=== PATIENT | male | born 1995 | race Caucasian/White ===

== ENCOUNTER 2016-04-10 11:14 | Emergency (ER) | payer SELFPAY ==
[~2016-04-10] VITALS: Ht 172.7 cm; Wt 92.0 kg
[~2016-04-10 11:14] MED LIST: BENZ100 PO; FLUT1SPR9; IBUP800T23 PO; METH750T2 PO; ZITH250T PO
[2016-04-10 11:23] VITALS: BP 120/75; PULSE 73; RESP 16; TEMP 97.8; O2SAT 97
[2016-04-10] MEDS ORDERED: IBUP800T23 PO (11:47)
[2016-04-10] MEDS ORDERED: AMOX875T PO (11:47)
[2016-04-10] MEDS ORDERED: IPRA0.06 EACH NARE (11:47)
--- NOTE | 2016-04-10 11:48 | PD ---
HPI Chief Complaint: Cold / Flu Symptoms Time Seen by Provider: 11:42 Travel History International Travel<30 days: No Contact w/Intl Traveler<30days: No Traveled to known affect area: No History of Present Illness HPI Patient is a 20-year-old male who presents emergency for evaluation of nasal congestion, cough. Patient states his symptoms have been ongoing for 2 days, he denies any fevers or chills. He does state that he vomited this morning, it was associated with a coughing spell. He denies any abdominal pain, shortness of breath, diarrhea. He states that his daughter was sick last week and her symptoms resolved on their own. He denies any significant past medical history but does endorse smoking. [facility] Past Medical History Anxiety: Yes Developmental Delay: No Diabetes: No Diminished Hearing: No Immune Disorder: No Immunizations Current: Yes Social History Alcohol Use: No Tobacco Use: Yes Substance Use: No Allergies-Medications (Allergen,Severity, Reaction): Coded Allergies: Sulfa (Verified Allergy, Severe, HIVES, 04/10/16) Reported Meds & Prescriptions Reported Meds & Active Scripts Active No Active Prescriptions or Reported Medications Review of Systems Except as stated in HPI: all other systems reviewed are Neg General / Constitutional: No: Fever, Chills HENT: Positive: Rhinitis, Congestion, No: Sore Throat, Neck Pain, Earache Cardiovascular: No: Chest Pain or Discomfort Respiratory: Positive: Cough, No: Shortness of Breath, Wheezing Gastrointestinal: Positive: Vomiting (once this morning), No: Nausea, Diarrhea , Abdominal Pain Musculoskeletal: No: Myalgias Physical Exam Narrative GENERAL: Well-nourished, well-developed patient. SKIN: Warm and dry. HEAD: Normocephalic. EYES: No scleral icterus. No injection or drainage. NECK: Supple, trachea midline. No JVD or lymphadenopathy. ENT: Mucosa pink and moist. No erythema or exudates. No uvular edema. No uvular , palatal, or tonsillar deviation. Airway patent. Nasal turbinates appear edematous without nasal blood, purulent drainage or septal hematoma. Posterior pharynx cobblestone appearance CARDIOVASCULAR: Regular rate and rhythm without murmurs, gallops, or rubs. RESPIRATORY: Breath sounds equal bilaterally. No accessory muscle use. GASTROINTESTINAL: Abdomen soft, non-tender, nondistended. MUSCULOSKELETAL: No cyanosis, or edema. BACK: Nontender without obvious deformity. No CVA tenderness. Data Data Last Documented VS Vital Signs Date Time Temp Pulse Resp B/P Pulse Ox O2 Delivery O2 Flow Rate FiO2 04/10/16 11:23 97.8 73 16 120/75 97 [facility] Medical Decision Making Medical Screen Exam Complete: Yes Emergency Medical Condition: Yes Interpretation(s) Vital Signs Date Time Temp Pulse Resp B/P Pulse Ox O2 Delivery O2 Flow Rate FiO2 04/10/16 11:23 97.8 73 16 120/75 97 Differential Diagnosis Viral URI versus bronchitis versus pneumonia versus pharyngitis versus other Narrative Course Patient is a 20-year-old male who presents emergency department evaluation 2 days of cough and nasal congestion. Patient's daughter was sick with the same symptoms last week and symptoms resolved on their own with symptomatic management. Patient denies any other complaints at this time, he denies any abdominal pain but states he vomited this morning with a coughing spell. His vital signs are stable, he is afebrile well oxygenated on room air. Patient appears well. He was encouraged to continue symptomatic management. Patient will be provided with a prescription for an antibiotic however he was encouraged to avoid taking it for 3-4 days to see if his symptoms resolve on their own. Patient verbalized understanding of these instructions. Patient stable for discharge. Diagnosis Primary Impression: Viral URI with cough Referrals: Primary Care Physician Patient Instructions: General Instructions, Upper Respiratory Infection (ED) Additional Instructions: Obtain [id number]-hikryru nasal congestion or similar agent and take as directed, [id number] Nasonex or Flonase. Continue with symptomatic management Avoid tobacco use Return to emergency department for any new or worsening symptoms Follow-up with your primary doctor Med/Other Pt SpecificInfo: Prescription(s) given Scripts Ibuprofen 800 Mg [id number] Mg PO Q6HR PRN (PAIN) #40 TAB Ref 0 Prov:Estrellita Parks 04/10/16 Ipratropium Nasal 0.06% Spray1 [place] EACH NARE QID #1 BOTTLE Ref 0 Prov:Estrellita Parks 04/10/16 Amoxicillin 875 Mg [id number] Mg PO BID 10 Days Ref 0 Prov:Estrellita Parks 04/10/16 Disposition: 01 DISCHARGE HOME Condition: Stable Estrellita Parks Apr 10, 2016 11:47
== END 2016-04-10 12:04 | disposition home or self-care (01) ==
LOC: PHEFT 11:14
DX: J06.9 Acute upper respiratory infection, unspecified (principal); B34.9 Viral infection, unspecified; R05 Cough; Z72.0 Tobacco use
CPT/HCPCS: 99283

== ENCOUNTER 2016-11-14 15:07 | Emergency (ER) | payer SELFPAY ==
[~2016-11-14 15:07] MED LIST changes: +AMOX875T PO; -BENZ100 PO; -FLUT1SPR9; +IPRA0.06 EACH NARE; -METH750T2 PO; -ZITH250T PO
[2016-11-14 15:09] VITALS: BP 153/78; PULSE 91; RESP 20; TEMP 97.7; O2SAT 98
== END 2016-11-14 17:59 | disposition left against medical advice (07) ==
LOC: NED 15:07
DX: H57.11 Ocular pain, right eye (principal); Z53.21 Procedure and treatment not carried out due to patient leaving prior to being seen by health care provider
CPT/HCPCS: 99281

== ENCOUNTER 2016-12-04 16:27 | Emergency (ER) | payer SELFPAY ==
[~2016-12-04] VITALS: Ht 170.2 cm; Wt 93.1 kg
[2016-12-04 16:45] VITALS: BP 135/82; PULSE 89; RESP 22; TEMP 98.1; O2SAT 98
[2016-12-04] MEDS ORDERED: SODIUM CHLOR 0.9% 1000 ML INJ 1,000 ML IV SCH (16:54)
[2016-12-04] MEDS ORDERED: ONDANSETRON HCL 4 MG/2 ML VIAL IVP ONE (17:00)
[2016-12-04] MEDS ORDERED: HYDROmorphone HCL PF 1 MG/ML VIAL IVS ONE (17:00)
--- NOTE | 2016-12-04 17:00 | PD ---
HPI Chief Complaint: Abdominal Pain Time Seen by Provider: 16:54 Travel History International Travel<30 days: No Contact w/Intl Traveler<30days: No Traveled to known affect area: No History of Present Illness HPI patient states sudden onset right flank pain, 11/29, radiating to groin area, ongoing persistently for last hour, denies fever/barraza/cp/n/v/d/ at this point and denies any alleviating/aggravating factors PFSH Past Medical History Medical History: Denies Significant Hx Anxiety: Yes Cardiovascular Problems: Yes Developmental Delay: No Diabetes: No Diminished Hearing: No Immune Disorder: No Immunizations Current: Yes Past Surgical History Surgical History: No Previous Surgery Social History Alcohol Use: No Tobacco Use: No Substance Use: No Allergies-Medications (Allergen,Severity, Reaction): Coded Allergies: Sulfa (Sulfonamide Antibiotics) (Unverified Allergy, Severe, HIVES, ) Reported Meds & Prescriptions Reported Meds & Active Scripts Active Ketorolac (Ketorolac Tromethamine) 10 Mg Tab 10 Mg PO Q6HR PRN Review of Systems Except as stated in HPI: all other systems reviewed are Neg Gastrointestinal: Positive: Abdominal Pain Genitourinary: Positive: Flank Pain (rt) Physical Exam Narrative GENERAL: SKIN: Warm and dry. HEAD: Atraumatic. Normocephalic. EYES: Pupils equal and round. No scleral icterus. No injection or drainage. ENT: No nasal bleeding or discharge. Mucous membranes pink and moist. NECK: Trachea midline. No JVD. CARDIOVASCULAR: Regular rate and rhythm. RESPIRATORY: No accessory muscle use. Clear to auscultation. Breath sounds equal bilaterally. GASTROINTESTINAL: Abdomen soft, mild tender to palpation to rlq region, neg cvat , nondistended. normal testicular lie/normal cremasteric reflex/nontender MUSCULOSKELETAL: Extremities without clubbing, cyanosis, or edema. No obvious deformities. NEUROLOGICAL: Awake and alert. No obvious cranial nerve deficits. Motor grossly within normal limits. Five out of 5 muscle strength in the arms and legs. Normal speech. PSYCHIATRIC: Appropriate mood and affect; insight and judgment normal. Data Data Last Documented VS Vital Signs Date Time Temp Pulse Resp B/P (MAP) Pulse Ox O2 Delivery O2 Flow Rate FiO2 12/04/16 17:41 72 16 150/90 (110) 98 Room Air 12/04/16 16:45 98.1 Orders Orders Complete Blood Count With Diff (12/04/16 16:54) Comprehensive Metabolic Panel (12/04/16 16:54) Urinalysis - C+S If Indicated (12/04/16 16:54) Iv Access Insert/Monitor (12/04/16 16:54) Oxygen Administration (12/04/16 16:54) Oximetry (12/04/16 16:54) Lipase (12/04/16 16:54) Ct Abd/Pel W/O Iv Contrast (12/04/16 16:54) NPO (12/04/16 16:54) Ondansetron Inj (Zofran Inj) (12/04/16 17:00) Sodium Chlor 0.9% 1000 Ml Inj (Ns 1000 M (12/04/16 16:54) Hydromorphone Pf Inj (Dilaudid Pf Inj) (12/04/16 17:00) Ketorolac Inj (Toradol Inj) (12/04/16 18:30) Labs Laboratory Tests Test 12/04/16 16:55 12/04/16 17:00 Urine Color YELLOW Urine Turbidity CLEAR Urine pH 6.0 Urine Specific [place] 1.025 Urine Protein TRACE mg/dL Urine Glucose (UA) NEG mg/dL Urine Ketones NEG mg/dL Urine Occult Blood SMALL Urine Nitrite NEG Urine Bilirubin NEG Urine Leukocyte Esterase NEG Urine RBC 0-3 /hpf Urine WBC 0-2 /hpf Urine Squamous Epithelial Cells 0-5 /hpf Urine Mucus OCC /lpf Microscopic Urinalysis Comment CULT NOT INDICATED White Blood Count 11.4 TH/MM3 Red Blood Count 5.31 MIL/MM3 Hemoglobin 16.7 GM/DL Hematocrit 50.3 % Mean Corpuscular Volume 94.6 FL Mean Corpuscular Hemoglobin 31.4 PG Mean Corpuscular Hemoglobin Concent 33.2 % Red Cell Distribution Width 12.9 % Platelet Count 208 TH/MM3 Mean Platelet Volume 10.0 FL Neutrophils (%) (Auto) 69.2 % Lymphocytes (%) (Auto) 23.9 % Monocytes (%) (Auto) 5.0 % Eosinophils (%) (Auto) 1.5 % Basophils (%) (Auto) 0.4 % Neutrophils # (Auto) 7.9 TH/MM3 Lymphocytes # (Auto) 2.7 TH/MM3 Monocytes # (Auto) 0.6 TH/MM3 Eosinophils # (Auto) 0.2 TH/MM3 Basophils # (Auto) 0.0 TH/MM3 CBC Comment DIFF FINAL Differential Comment Blood Urea Nitrogen 12 MG/DL Creatinine 1.10 MG/DL Random Glucose 83 MG/DL Total Protein 7.8 GM/DL Albumin 4.3 GM/DL Calcium Level 9.1 MG/DL Alkaline Phosphatase 80 U/L Aspartate Amino Transf (AST/SGOT) 27 U/L Alanine Aminotransferase (ALT/SGPT) 56 U/L Total Bilirubin 0.6 MG/DL Sodium Level 138 MEQ/L Potassium Level 3.9 MEQ/L Chloride Level 105 MEQ/L Carbon Dioxide Level 23.4 MEQ/L Anion Gap 10 MEQ/L Estimat Glomerular Filtration Rate 85 ML/MIN Lipase 86 U/L [facility] Medical Decision Making Medical Screen Exam Complete: Yes Emergency Medical Condition: Yes Medical Record Reviewed: Yes Differential Diagnosis ureterolithiasis v appy v colitis v ascending cystitis v pancreatitis Narrative Course cbc wnl, nl lipase, nl liver functions and ct neg for appy/colitis or active ureteral stones...however patients presentation c/w passing kidney stone, and it may be small enough to be in bladder now making it difficult to visualize but patient's pain is now controlled. Diagnosis Primary Impression: Right flank pain Patient Instructions: General Instructions, Kidney Stones (ED) Scripts Ketorolac (Ketorolac) 10 Mg Tab 10 MG PO Q6HR Y for PAIN, #20 TAB 0 Refills Prov: Porter Patterson MD 12/04/16 Disposition: 01 DISCHARGE HOME Condition: Stable Porter Patterson MD Dec 04, 2016 17:00
[2016-12-04 17:09] VITALS: O2SAT 100
[2016-12-04 17:17] LABS: BLOOD, URINE SMALL (NEG); GLUCOSE,URINE NEG (NEG); KETONE, URINE NEG (NEG); NITRITE,URINE NEG (NEG)
[2016-12-04 17:20] LABS: AUTOMATED NEUTROPHIL # 7.9 TH/MM3 (1.8-7.7); BASOPHIL % 0.4 % (0.0-2.0); EOSINOPHIL # 0.2 TH/MM3 (0-0.4); EOSINOPHIL % 1.5 % (0.0-4.0); HEMATOCRIT 50.3 % (39.0-51.0); LYMPH % 23.9 % (9.0-44.0); LYMPHOCYTE # 2.7 TH/MM3 (1.0-4.8); MEAN CELL VOLUME 94.6 FL (80.0-100.0); MEAN CORPUSCULAR HEMOGLOBIN 31.4 PG (27.0-34.0); MEAN CORPUSCULAR HGB CONC 33.2 % (32.0-36.0); NEUT % 69.2 % (16.0-70.0); PLATELET COUNT 208 TH/MM3 (150-450); RED BLOOD COUNT 5.31 MIL/MM3 (4.50-5.90); RED CELL DISTRIBUTION WIDTH 12.9 % (11.6-17.2); WHITE BLOOD COUNT 11.4 TH/MM3 (4.0-11.0)
[2016-12-04 17:22] LABS: URINE COLOR YELLOW (YELLW/STRAW)
[2016-12-04 17:23] LABS: MUCUS URINE OCC /lpf (OCC)
[2016-12-04 17:24] LABS: COMMENT (UR) CULT NOT INDICATED; CULTURE IF INDICATED CULT NOT INDICATED; RBC, URINE 0-3 /hpf (0-3); SQUAMOUS EPITHELIAL CELL URINE 0-5 /hpf (0-5); WBC, URINE 0-2 /hpf (0-5)
[2016-12-04 17:27] LABS: CHLORIDE 105 MEQ/L (98-107); POTASSIUM 3.9 MEQ/L (3.5-5.1); SODIUM (NA) 138 MEQ/L (136-145)
[2016-12-04 17:29] LABS: HEMO FLAGS DIFF FINAL
[2016-12-04 17:32] LABS: ANION GAP 10 MEQ/L (5-15); BICARBONATE 23.4 MEQ/L (21.0-32.0); BLOOD UREA NITROGEN 12 MG/DL (7-18)
[2016-12-04 17:35] LABS: ALT (GPT) 56 U/L (12-78); AST (GOT) 27 U/L (15-37); GLOMERULAR FILTRATION RATE 85 ML/MIN (>89)
[2016-12-04 17:36] LABS: TOTAL BILIRUBIN ADULT 0.6 MG/DL (0.2-1.0)
[2016-12-04 17:38] LABS: ALKALINE PHOSPHATASE 80 U/L (45-117)
[2016-12-04 17:41] VITALS: BP 150/90; PULSE 72; RESP 16; O2SAT 98
--- NOTE | 2016-12-04 18:09 | RADRPT ---
EXAM DATE/TIME: 12/04/2016 17:46 [place] COMPARISON: No previous studies available for comparison. INDICATIONS : Right flank pain. Diarrhea. ORAL CONTRAST: No oral contrast ingested. RADIATION DOSE: 19.34 CTDIvol (mGy) MEDICAL HISTORY : None SURGICAL HISTORY : None. ENCOUNTER: Initial ACUITY: 1 day PAIN SCALE: 9/10 LOCATION: Right flank TECHNIQUE: Volumetric scanning of the abdomen and pelvis was performed. Using automated exposure control and ad justment of the mA and/or kV according to patient size, radiation dose was kept as low as reasonably achievable to obtain optimal diagnostic quality images. DICOM format image data is available electro nically for review and comparison. FINDINGS: Right kidney/ureter: The right kidney is normal in size. No stones are seen. The right ureter is followed throughout its c ourse and is unremarkable in appearance. Left kidney/ureter: No stones are seen. The left ureter is followed throughout its course and is normal in appearance. Bladder: No stones are identified within the bladder. CT source data: The limited portion of lung base visualized is clear. The portions of liver and spleen visualized are normal in appearance. The pancreas and adrenal glands are intact. The abdominal aorta is normal in s ize. There is no retroperitoneal lymphadenopathy. The visualized loops of small and large bowel are u nremarkable. There is no free fluid within the pelvis. No iliac or inguinal adenopathy is present. CONCLUSION: 1. Negative examination. 2. Negative examination. Hugh Gonzalez MD on December 04, 2016 at 18:04 Board Certified Radiologist. This report was verified electronically.
[2016-12-04] MEDS ORDERED: KETOROLAC TROMETHAMINE 30 MG/ML (IVP) VIAL IV PUSH ONE (18:30)
[2016-12-04] MEDS ORDERED: KETO10 PO (18:41)
[2016-12-04] MEDS ORDERED: PERC10TA27 PO (18:41)
[2016-12-04 19:05] VITALS: BP 130/80
== END 2016-12-04 19:15 | disposition home or self-care (01) ==
LOC: PHED 16:27
DX: R10.31 Right lower quadrant pain (principal)
CPT/HCPCS: 74176; 80053; 81001; 83690; 85025; 96361; 96374; 96375; 99285; J1170; J1885; J2405; J7030

== ENCOUNTER 2016-12-28 01:01 | Inpatient (IN) | payer SELFPAY ==
[~2016-12-28] VITALS: Ht 172.7 cm; Wt 97.0 kg
[2016-12-28] VITALS (7 sets, daily range): BP systolic 132–154; BP diastolic 80–107; PULSE 68–86; RESP 16–18; TEMP 96–99.3; O2SAT 97–100
[~2016-12-28 01:01] MED LIST changes: -AMOX875T PO; -IBUP800T23 PO; -IPRA0.06 EACH NARE; +KETO10 PO
[2016-12-28] MEDS ORDERED: SODIUM CHLOR 0.9% 1000 ML INJ 1,000 ML IV SCH (01:12)
[2016-12-28] MEDS ORDERED: DIPHTH/TETANUS/ACEL PERTUSSIS (BOOSTER) 0.5 ML VIAL/PFS IM ONE (01:15)
[2016-12-28] MEDS ORDERED: ceFAZolin 2 GM PREMIX 50 ML IV ONE (01:15)
[2016-12-28] MEDS ORDERED: SODIUM CHLORIDE 0.9% FLUSH 10 ML FLUSH IVF PRN (01:15)
[2016-12-28 01:24] LABS: BASOPHIL % 0.3 % (0.0-2.0); EOSINOPHIL # 0.2 TH/MM3 (0-0.4); EOSINOPHIL % 1.8 % (0.0-4.0); HEMATOCRIT 41.2 % (39.0-51.0); HEMO FLAGS DIFF FINAL; LYMPH % 48.2 % (9.0-44.0); LYMPHOCYTE # 4.4 TH/MM3 (1.0-4.8); MEAN CELL VOLUME 94.3 FL (80.0-100.0); MONO % 5.7 % (0.0-8.0); PLATELET COUNT 183 TH/MM3 (150-450); RED BLOOD COUNT 4.37 MIL/MM3 (4.50-5.90); RED CELL DISTRIBUTION WIDTH 12.7 % (11.6-17.2); WHITE BLOOD COUNT 9.1 TH/MM3 (4.0-11.0)
[2016-12-28 01:27] LABS: I-STAT POTASSIUM 3.5 MMOL/L (3.5-4.9); I-STAT SODIUM 140 MMOL/L (138-146)
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
[2016-12-28 01:41] LABS: APTT (PATIENT) 25.9 SEC (24.3-30.1); PROTHROMBIN TIME - PATIENT 10.8 SEC (9.8-11.6)
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
--- NOTE | 2016-12-28 01:44 | RADRPT ---
EXAM DATE/TIME: 12/28/2016 01:04 [facility] COMPARISON: No previous studies available for comparison. INDICATIONS : Shortness of breath. MEDICAL HISTORY : None. SURGICAL HISTORY : None. ENCOUNTER: Initial ACUITY: 1 day PAIN SCORE: 0/10 LOCATION: Bilateral chest FINDINGS: A single view of the chest demonstrates the lungs to be symmetrically aerated without evidence of mas s, infiltrate or effusion. The cardiomediastinal contours are unremarkable. Osseous structures are intact. CONCLUSION: No acute disease. Zoltan Clements MD on December 28, 2016 at 1:42 Board Certified Radiologist. This report was verified electronically.
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
[2016-12-28 01:45] LABS: ALCOHOL LESS THAN 3 MG/DL (0-5)
[2016-12-28] MEDS ORDERED: SODIUM CHLORIDE 0.9% FLUSH 10 ML FLUSH IV FLUSH PRN (01:45)
[2016-12-28] MEDS ORDERED: MISCELLANEOUS NURSING INFORMATION XX SCH (01:45)
[2016-12-28] MEDS ORDERED: CHLORHEXIDINE GLUCONATE 2 % 1 PACK (2 CLOTHS) TOP PRN (01:45)
[2016-12-28] MEDS ORDERED: HYDROmorphone HCL PF 1 MG/ML VIAL IVP PRN (01:45)
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
[2016-12-28] MEDS: LACTATED RINGER'S 1000 ML INJ 1,000 ML IV SCH ×2 (02:01→11:33)
[2016-12-28] MEDS: ONDANSETRON HCL 4 MG/2 ML VIAL IV PUSH PRN ×2 (02:28→08:31)
[2016-12-28] MEDS: HYDROmorphone HCL PF 1 MG/ML VIAL IVP PRN ×4 (02:29→12:29)
[2016-12-28] MEDS ORDERED: CHLORHEXIDINE GLUCONATE 2 % 1 PACK (2 CLOTHS) TOP SCH (04:00)
[2016-12-28] MEDS ORDERED: ACETAMINOPHEN/HYDROcodone 325 MG/5 MG TAB PO PRN (08:00)
[2016-12-28] MEDS ORDERED: ACETAMINOPHEN/HYDROcodone 325 MG/7.5 MG TAB PO PRN (08:00)
[2016-12-28] MEDS ORDERED: DOCUSATE SODIUM 50 MG/SENNA 8.6 MG TAB PO SCH (09:00)
[2016-12-28] MEDS ORDERED: MAGN400S PO (13:00)
[2016-12-28] MEDS ORDERED: SENN1TAB PO (13:00)
[2016-12-28] MEDS ORDERED: CRUTMIS25 (13:01)
[2016-12-28] MEDS ORDERED: HYDR-3516 PO (13:57)
[2016-12-28] MEDS ORDERED: CIPR-9 PO (13:57)
[2016-12-28] MEDS ORDERED: BACI500O9 TOPICAL (14:00)
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
[2016-12-28] MEDS ORDERED: MAGNESIUM HYDROXIDE SUSP 30 ML CUP PO SCH (21:00)
== END 2016-12-28 15:25 | disposition home or self-care (01) | DRG 605 ==
LOC: NEPC 01:01 → OBSVTOIN 02:02 → NEDA 02:02 → N06B 04:00
PROVIDERS: ADMIT Surgery Trauma Surgery; ATTEND Surgery Trauma Surgery
DX: S81.832A Puncture wound without foreign body, left lower leg, initial encounter (principal); W32.0XXA Accidental handgun discharge, initial encounter
CPT/HCPCS: 71010; 73560; 73590; 80307; 82435; 82565; 82947; 84132; 84295; 84520; 85025; 85610; 85730; 86850; 86900; 86901; 90471; 90715; 93922; 96374; J1170; J2405; J7030; J7120

== ENCOUNTER 2017-01-02 17:38 | Inpatient (IN) | payer SELFPAY ==
[~2017-01-02] VITALS: Ht 172.7 cm; Wt 95.4 kg
[~2017-01-02 17:38] MED LIST changes: +BACI500O9 TOPICAL; +CIPR-9 PO; +CRUTMIS25; +HYDR-3516 PO; +MAGN400S PO; +SENN1TAB PO
[2017-01-02 17:42] VITALS: BP 173/107; PULSE 108; RESP 30; TEMP 98; O2SAT 98
[2017-01-02] MEDS ORDERED: SODIUM CHLOR 0.9% 1000 ML INJ 1,000 ML IV SCH (17:55)
[2017-01-02] MEDS ORDERED: HYDROmorphone HCL PF 2 MG/ML VIAL IVS ONE (18:00)
[2017-01-02] MEDS ORDERED: SODIUM CHLORIDE 0.9% FLUSH 10 ML FLUSH IV FLUSH PRN ×2 (18:00→18:45)
[2017-01-02] MEDS ORDERED: ONDANSETRON HCL 4 MG/2 ML VIAL IVP ONE (18:00)
[2017-01-02] MEDS ORDERED: HYDROmorphone HCL PF 1 MG/ML VIAL IVS ONE (18:00)
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
[2017-01-02 18:20] VITALS: BP 143/77; PULSE 90; RESP 16; O2SAT 97
[2017-01-02] MEDS ORDERED: Post-op Orders (for Pharmacy) MISC XX ONE (18:45)
[2017-01-02] MEDS ORDERED: NALOXONE HCL 0.4 MG/ML AMP IV PUSH PRN (18:45)
[2017-01-02] MEDS ORDERED: ONDANSETRON HCL 4 MG/2 ML VIAL IV PUSH PRN (18:45)
[2017-01-02 18:55] LABS: AUTOMATED NEUTROPHIL # 6.1 TH/MM3 (1.8-7.7); BASOPHIL % 0.5 % (0.0-2.0); EOSINOPHIL # 0.3 TH/MM3 (0-0.4); EOSINOPHIL % 2.9 % (0.0-4.0); HEMATOCRIT 41.8 % (39.0-51.0); HEMO FLAGS DIFF FINAL; LYMPHOCYTE # 2.9 TH/MM3 (1.0-4.8); MEAN CELL VOLUME 95.6 FL (80.0-100.0); MEAN CORPUSCULAR HEMOGLOBIN 33.4 PG (27.0-34.0); MONO % 6.3 % (0.0-8.0); NEUT % 61.3 % (16.0-70.0); PLATELET COUNT 221 TH/MM3 (150-450); RED BLOOD COUNT 4.37 MIL/MM3 (4.50-5.90); RED CELL DISTRIBUTION WIDTH 13.1 % (11.6-17.2)
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
[2017-01-02] MEDS: SODIUM CHLORIDE 0.9% FLUSH 10 ML FLUSH IV FLUSH SCH (19:22)
[2017-01-02 19:24] LABS: BICARBONATE 27.9 MEQ/L (21.0-32.0)
[2017-01-02 19:25] LABS: POTASSIUM 4.6 MEQ/L (3.5-5.1)
--- NOTE | 2017-01-02 19:47 | RADRPT ---
EXAM DATE/TIME: 01/02/2017 19:04 [facility] COMPARISON: No previous studies available for comparison. INDICATIONS : Bilateral leg swelling. MEDICAL HISTORY : Neurologic problems. Head trauma. Bladder stones. Anxiety. Claustrophobia. SURGICAL HISTORY : None. ENCOUNTER: Initial ACUITY: 1 day PAIN SCORE: 10/10 LOCATION: Bilateral legs. TECHNIQUE: Venous ultrasound of the left and right leg was performed from the inguinal ligament t o the proximal calf. Real-time, color Doppler and spectral tracing, compression and augmentation shanna hniques were used. FINDINGS: RIGHT LEG: There is normal compressibility of the deep venous system from the inguinal region to the proximal calf. No echogenic clot is seen in the lumen of the common femoral, femoral, popliteal, and posterior tibial veins. There is a normal response of the venous system to proximal and distal augmentation and respiration. LEFT LEG: There is normal compressibility of the deep venous system from the inguinal region to t he proximal calf. No echogenic clot is seen in the lumen of the common femoral, femoral, popliteal, and posterior tibial veins. There is a normal response of the venous system to proximal and distal a ugmentation and respiration. CONCLUSION: No evidence of DVT. Jerald Cisneros MD on January 02, 2017 at 19:45 Board Certified Radiologist. This report was verified electronically.
[2017-01-02 20:00] VITALS: BP 173/97; PULSE 74; RESP 18; TEMP 97.8; O2SAT 97
[2017-01-02] MEDS ORDERED: ENOXAPARIN SODIUM 40 MG/0.4 ML SYRINGE SQ SCH (20:00)
[2017-01-02] MEDS: oxyCODONE/ACETAMINOPHEN 5 MG/325 MG TAB PO PRN (20:15)
[2017-01-03] VITALS: BP 131/91; PULSE 75; RESP 18; TEMP 97.8; O2SAT 96
[2017-01-03] MEDS: oxyCODONE/ACETAMINOPHEN 5 MG/325 MG TAB PO PRN ×4 (00:07→13:27)
[2017-01-03 04:00] VITALS: BP 144/68; PULSE 71; RESP 18; TEMP 97.5; O2SAT 98
[2017-01-03 08:04] VITALS: BP 157/63; PULSE 81; RESP 16; TEMP 97.9; O2SAT 99
[2017-01-03] MEDS ORDERED: LACTULOSE SYRUP 20 GM/30 ML CUP PO PRN (08:15)
[2017-01-03] MEDS: SODIUM CHLORIDE 0.9% FLUSH 10 ML FLUSH IV FLUSH SCH (09:00)
[2017-01-03] MEDS ORDERED: DOCUSATE SODIUM 50 MG/SENNA 8.6 MG TAB PO SCH (09:00)
[2017-01-03 12:04] VITALS: BP 126/68; PULSE 89; RESP 16; TEMP 97.8; O2SAT 97
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
== END 2017-01-03 15:22 | disposition home or self-care (01) | DRG 556 ==
LOC: NEPC 17:38 → NEDA 18:41 → N04B 19:43
PROVIDERS: ADMIT Surgery; ATTEND Surgery
DX: M79.662 Pain in left lower leg (principal); F12.10 Cannabis abuse, uncomplicated; S71.102D Unspecified open wound, left thigh, subsequent encounter
CPT/HCPCS: 80048; 85025; 93970; 94150; 96374; 96375; J1170; J1650; J2405; J7030

== ENCOUNTER 2017-03-17 10:34 | Emergency (ER) | payer SELFPAY ==
[~2017-03-17] VITALS: Ht 167.6 cm; Wt 92.0 kg
[~2017-03-17 10:34] MED LIST changes: -CIPR-9 PO
[2017-03-17 10:35] VITALS: BP 138/82; PULSE 72; RESP 20; TEMP 98.2; O2SAT 98
--- NOTE | 2017-03-17 10:59 | PD ---
HPI Chief Complaint: Cold / Flu Symptoms Time Seen by Provider: 10:52 Travel History International Travel<30 days: No Contact w/Intl Traveler<30days: No Traveled to known affect area: No History of Present Illness HPI 21-year-old male presents to the emergency Department with complaint of nasal congestion, sore throat, headache, vomiting since yesterday. Vomiting onset this morning and he last vomited about 2 hours ago. Denies headache at this time. Denies cough. Reports burning sensation in his throat. Denies lip throat, difficulty swallowing, unusual drooling. Reports hoarse voice. Denies abdominal pain. Reports chills. Unknown fever. Drank hot tea for his sore throat and has not vomited since. Rates throat pain 08/29. Describes it as a burning sensation. Allergies to sulfa. Does not have an established primary care provider. Denies significant past medical history. Has no other medical complaints. No other modifying factors or associated signs and symptoms. PFSH Past Medical History Anxiety: Yes Depression: No Cancer: No Cardiovascular Problems: No Developmental Delay: No Diabetes: No Diminished Hearing: No Endocrine: No Gastrointestinal Disorders: No Genitourinary: Yes (bladder stones) Immune Disorder: No Implanted Vascular Access Dvce: No Musculoskeletal: Yes Neurologic: Yes Psychiatric: Yes Reproductive: No Respiratory: No Immunizations Current: Yes Thyroid Disease: No Past Surgical History Other Surgery: No Social History Alcohol Use: No Tobacco Use: No Substance Use: Yes (mj) Allergies-Medications (Allergen,Severity, Reaction): Coded Allergies: Sulfa (Sulfonamide Antibiotics) (Unverified Allergy, Severe, HIVES, ) Reported Meds & Prescriptions Reported Meds & Active Scripts Active Zofran Odt (Ondansetron Odt) 4 Mg Tab 4 Mg SL Q8HR PRN Review of Systems Except as stated in HPI: all other systems reviewed are Neg Physical Exam Narrative GENERAL: Well-nourished, well-developed male patient, in no acute distress SKIN: Warm and dry. No rash. HEAD: Atraumatic. Normocephalic. EYES: Pupils equal and round at 3 mm with brisk reaction. No scleral icterus. No injection or drainage. PERRLA. ENT: Mucosa pink and dry. Pharynx with 2+ tonsils; with erythema; without exudate. No Uvular edema. No uvular, palatal, or tonsillar deviation. Airway patent. Voice is hoarse. EARS: Bilateral pinnae and external canals appear within normal limits. Bilateral tympanic membranes without erythema, dullness or perforation.. NECK: Trachea midline. Anterior cervical with tenderness on palpation; without lymphadenopathy. CARDIOVASCULAR: Regular rate and rhythm. No murmur appreciated. RESPIRATORY: No accessory muscle use. Clear to auscultation. Breath sounds equal bilaterally. GASTROINTESTINAL: Abdomen soft, non-tender, nondistended. Hepatic and splenic margins not palpable. Bowel sounds are active 4 quadrants. MUSCULOSKELETAL: No obvious deformities. No clubbing. No cyanosis. No edema. NEUROLOGICAL: Awake and alert. Oriented 3. No obvious cranial nerve deficits. Motor grossly within normal limits. Normal speech. Moves all extremities. PSYCHIATRIC: Appropriate mood and affect; insight and judgment normal. Data Data Last Documented VS Vital Signs Date Time Temp Pulse Resp B/P (MAP) Pulse Ox O2 Delivery O2 Flow Rate FiO2 03/17/17 10:35 98.2 72 20 138/82 (100) 98 Room Air Orders Orders Influenzae A/B Antigen (03/17/17 10:59) Group A Rapid Strep Screen (03/17/17 10:59) Ondansetron Odt (Zofran Odt) (03/17/17 11:30) Strep Culture (Group A) (03/17/17 11:00) Ed Discharge Order (03/17/17 11:56) [facility] Medical Decision Making Medical Screen Exam Complete: Yes Emergency Medical Condition: Yes Medical Record Reviewed: Yes Differential Diagnosis Influenza, strep pharyngitis, viral illness Narrative Course 21-year-old male with cold/flu symptoms and sore throat. Patient is afebrile and nontoxic-appearing. Reports vomiting this morning. Unknown fevers, reports chills. Rapid strep, influenza ordered. I offered the patient pain medication and he declined. Zofran ordered. Patient given Gatorade to do oral challenge. 1153: Influenza and rapid strep negative. Patient has tolerated the Gatorade without continued nausea or vomiting. Discussed viral illness and symptomatic management. Zofran prescribed for home. Instructed patient to follow up with primary care provider. Patient verbalizes understanding and agreement with treatment plan. Patient is medically cleared and stable for discharge. Discussed reasons to return to the emergency department. Patient agrees with treatment plan. The patients vital signs are stable and the patient is stable for outpatient follow-up and treatment. Patient discharged home, stable and in no acute distress. Diagnosis Primary Impression: Viral illness Referrals: [facility] Primary Care Physician Patient Instructions: Acute Nausea and Vomiting (ED), Cold Symptoms (ED), Gastroenteritis (ED), General Instructions, Safe Use of Cough and Cold Medicines (ED) Additional Instructions: Ibuprofen or Tylenol as directed and as needed to reduce fever; may alternate ibuprofen and Tylenol as needed every 3 hours to minimize fever [id number] cold/flu medications as directed and as needed for symptom management Get plenty of sleep/rest Drink plenty of fluids to prevent dehydration; such as Gatorade, Powerade, Pedialyte [place] diet to encourage nutrition such as crackers, fruit, applesauce, toast, soup etc. Use an air humidifier/turn off ceiling fans Take Zofran as prescribed for nausea/vomiting Increase fluid intake, starting with clear fluids; advancing to a bland diet as tolerated [place] diet to include crackers, rice, toast, bananas as tolerated, advancing slowly to regular diet Follow-up with your primary care provider within 1 day Return immediately to the emergency department with worsening of symptoms Med/Other Pt SpecificInfo: Prescription(s) given Scripts Ondansetron Odt (Zofran Odt) 4 Mg Tab 4 MG SL Q8HR Y for Nausea/Vomiting, #6 TAB 0 Refills Prov: Aby Brown 03/17/17 Disposition: 01 DISCHARGE HOME Condition: Stable Aby Brown Mar 17, 2017 10:59
[2017-03-17] MEDS ORDERED: ONDANSETRON ODT 4 MG TAB PO ONE (11:30)
[2017-03-17] MEDS ORDERED: ZOFR4TAB3 SL (11:54)
[2017-03-17 12:17] VITALS: BP 120/80
== END 2017-03-17 12:20 | disposition home or self-care (01) ==
LOC: NEPD 10:34
DX: B34.9 Viral infection, unspecified (principal)
CPT/HCPCS: 87081; 87804; 87880; 99283

== ENCOUNTER 2017-04-12 09:43 | Emergency (ER) | payer SELFPAY ==
[~2017-04-12 09:43] MED LIST changes: -BACI500O9 TOPICAL; -CRUTMIS25; -HYDR-3516 PO; -KETO10 PO; -MAGN400S PO; -SENN1TAB PO; +ZOFR4TAB3 SL
[2017-04-12 09:45] VITALS: BP 163/86; PULSE 113; RESP 14; TEMP 98.3; O2SAT 95
--- NOTE | 2017-04-12 10:08 | PD ---
HPI . Vomiting Chief Complaint: GI Complaint Time Seen by Provider: 09:56 Travel History International Travel<30 days: No Contact w/Intl Traveler<30days: No History of Present Illness HPI This patient presents with chief complaint nausea and vomiting. He states that he was drinking a cup of coffee on his way to work this morning when he vomited. He subsequently presented here. He also reports loose stools. He states that he has a history of IBS and believes that he is having a flare. He has no pain. He denies any urinary tract symptoms. He denies any fever. PFSH Past Medical History Anxiety: Yes Depression: No Cancer: No Cardiovascular Problems: No Developmental Delay: No Diabetes: No Diminished Hearing: No Endocrine: No Gastrointestinal Disorders: No Genitourinary: Yes (bladder stones) Immune Disorder: No Implanted Vascular Access Dvce: No Kidney Stones: Yes Musculoskeletal: Yes Neurologic: Yes Psychiatric: Yes Reproductive: No Respiratory: No Immunizations Current: Yes Thyroid Disease: No Past Surgical History Other Surgery: No Social History Alcohol Use: No Tobacco Use: No Substance Use: Yes (marijuana) Allergies-Medications (Allergen,Severity, Reaction): Coded Allergies: Sulfa (Sulfonamide Antibiotics) (Unverified Allergy, Severe, HIVES, ) Reported Meds & Prescriptions Reported Meds & Active Scripts Active Zofran Odt (Ondansetron Odt) 4 Mg Tab 4 Mg SL Q8HR PRN Review of Systems Except as stated in HPI: all other systems reviewed are Neg General / Constitutional: No: Fever, Chills Gastrointestinal: Positive: Nausea, Vomiting, Diarrhea, No: Abdominal Pain Genitourinary: No: Urgency, Frequency, Dysuria Physical Exam Narrative GENERAL: Awake and alert and in no acute distress. SKIN: warm/dry. Normal color and turgor. HEAD: Normocephalic. Atraumatic. EYES: Pupils equal and round. No scleral icterus. No injection or drainage. ENT: No nasal bleeding or discharge. Mucous membranes pink and moist. NECK: Trachea midline. Full range of motion without pain.. CARDIOVASCULAR: Regular rate and rhythm. Heart sounds normal. RESPIRATORY: No accessory muscle use. Clear to auscultation. Breath sounds equal bilaterally. GASTROINTESTINAL: Abdomen soft. Nontender. Bowel sounds present. Nondistended. MUSCULOSKELETAL: No obvious deformities. NEUROLOGICAL: Awake and alert. No obvious cranial nerve deficits. Motor grossly within normal limits. Normal speech. PSYCHIATRIC: Appropriate mood and affect; insight and judgment normal. Data Data Last Documented VS Vital Signs Date Time Temp Pulse Resp B/P (MAP) Pulse Ox O2 Delivery O2 Flow Rate FiO2 04/12/17 09:45 98.3 113 14 163/86 (111) 95 MDM Medical Decision Making Medical Screen Exam Complete: Yes Emergency Medical Condition: Yes Differential Diagnosis Differential diagnosis includes but is not limited to viral gastritis, food poisoning, pancreatitis, pneumonia, hepatitis, acute coronary syndrome, Narrative Course This patient presents to us following a single episode of emesis this morning. He looks well-hydrated and has a benign abdominal exam. I will give him a Zofran. Diagnosis Primary Impression: Vomiting Qualified Codes: R11.2 - Nausea with vomiting, unspecified Patient Instructions: Acute Nausea and Vomiting (DC), General Instructions Departure Forms: Tests/Procedures Disposition: 01 DISCHARGE HOME Condition: Stable Carissa Dodge MD Apr 12, 2017 10:08
[2017-04-12] MEDS ORDERED: ONDANSETRON ODT 4 MG TAB PO ONE (10:15)
== END 2017-04-12 10:41 | disposition home or self-care (01) ==
LOC: NEPD 09:43
DX: R11.2 Nausea with vomiting, unspecified (principal)
CPT/HCPCS: 99283

== ENCOUNTER 2017-05-18 19:05 | Emergency (ER) | payer SELFPAY ==
[2017-05-18 19:20] VITALS: BP 130/76; PULSE 100; RESP 16; TEMP 98.8; O2SAT 98
[2017-05-18] MEDS ORDERED: SODIUM CHLOR 0.9% 1000 ML INJ 1,000 ML IV SCH (19:52)
--- NOTE | 2017-05-18 19:57 | PD ---
HPI Chief Complaint: GI Complaint Time Seen by Provider: 19:32 Travel History International Travel<30 days: No Contact w/Intl Traveler<30days: No Traveled to known affect area: No History of Present Illness HPI 21yo M with no significant PMH presents to the ED with multiple complaints today. Said he had vomiting, diarrhea and fever today. Also with cough, throat pain. Abdominal pain when he is vomiting or having a bowel movement. Denies any chest pain, sob, dysuria, hematuria, testicular pain, penile discharge. Daughter had vomiting yesterday and now son also with vomiting. PFSH Past Medical History Anxiety: Yes Depression: No Cancer: No Cardiovascular Problems: No Developmental Delay: No Diabetes: No Diminished Hearing: No Endocrine: No Gastrointestinal Disorders: No Genitourinary: Yes (bladder stones) Immune Disorder: No Implanted Vascular Access Dvce: No Kidney Stones: Yes Musculoskeletal: Yes Neurologic: Yes Psychiatric: Yes Reproductive: No Respiratory: No Immunizations Current: Yes Thyroid Disease: No Past Surgical History Other Surgery: No Social History Alcohol Use: No Tobacco Use: Yes (7 cigarettes/day) Substance Use: Yes (marijuana) Allergies-Medications (Allergen,Severity, Reaction): Coded Allergies: Sulfa (Sulfonamide Antibiotics) (Verified Allergy, Severe, HIVES, 05/18/17) Reported Meds & Prescriptions Reported Meds & Active Scripts Active Review of Systems Except as stated in HPI: all other systems reviewed are Neg Physical Exam Narrative GENERAL: 21yo M in mild distress. SKIN: Focused skin assessment warm/dry. HEAD: Atraumatic. Normocephalic. EYES: Pupils equal and round. No scleral icterus. No injection or drainage. ENT: Throat: Uvula midline. No tonsillar exudate. NECK: Trachea midline. No JVD. CARDIOVASCULAR: Regular rate and rhythm. No murmur appreciated. RESPIRATORY: No accessory muscle use. Clear to auscultation. Breath sounds equal bilaterally. GASTROINTESTINAL: Abdomen soft +TTP epigastric, RUQ, LLQ. No rebound tenderness or guarding. MUSCULOSKELETAL: No obvious deformities. No clubbing. No cyanosis. No edema. NEUROLOGICAL: Awake and alert. No obvious cranial nerve deficits. Motor grossly within normal limits in all extremities. Sensation intact. Normal speech. PSYCHIATRIC: Appropriate mood and affect; insight and judgment normal. Data Data Last Documented VS Vital Signs Date Time Temp Pulse Resp B/P (MAP) Pulse Ox O2 Delivery O2 Flow Rate FiO2 05/18/17 19:20 98.8 100 16 130/76 (94) 98 Orders Orders Complete Blood Count With Diff (05/18/17 19:52) Comprehensive Metabolic Panel (05/18/17 19:52) Lipase (05/18/17 19:52) Prothrombin Time / Inr (Pt) (05/18/17 19:52) Act Partial Throm Time (Ptt) (05/18/17 19:52) Urinalysis - C+S If Indicated (05/18/17 19:52) Ondansetron Inj (Zofran Inj) (05/18/17 20:00) Sodium Chlor 0.9% 1000 Ml Inj (Ns 1000 M (05/18/17 19:52) Al-Mag Hy-Si 40-40-4 Mg/Ml Liq (Mag-Al P (05/18/17 20:00) Lidocaine 2% Viscous (Xylocaine 2% Visco (05/18/17 20:00) Influenzae A/B Antigen (05/18/17 19:54) Group A Rapid Strep Screen (05/18/17 19:54) Strep Culture (Group A) (05/18/17 19:50) Labs Laboratory Tests Test 05/18/17 20:35 05/18/17 21:35 White Blood Count 8.8 TH/MM3 Red Blood Count 4.92 MIL/MM3 Hemoglobin 16.2 GM/DL Hematocrit 46.3 % Mean Corpuscular Volume 94.1 FL Mean Corpuscular Hemoglobin 32.9 PG Mean Corpuscular Hemoglobin Concent 35.0 % Red Cell Distribution Width 12.9 % Platelet Count 183 TH/MM3 Mean Platelet Volume 9.7 FL Neutrophils (%) (Auto) 91.3 % Lymphocytes (%) (Auto) 4.7 % Monocytes (%) (Auto) 3.3 % Eosinophils (%) (Auto) 0.4 % Basophils (%) (Auto) 0.3 % Neutrophils # (Auto) 8.0 TH/MM3 Lymphocytes # (Auto) 0.4 TH/MM3 Monocytes # (Auto) 0.3 TH/MM3 Eosinophils # (Auto) 0.0 TH/MM3 Basophils # (Auto) 0.0 TH/MM3 CBC Comment DIFF FINAL Differential Comment Prothrombin Time 10.6 SEC Prothromb Time International Ratio 1.0 RATIO Activated Partial Thromboplast Time 26.1 SEC Blood Urea Nitrogen 21 MG/DL Creatinine 1.20 MG/DL Random Glucose 105 MG/DL Total Protein 7.6 GM/DL Albumin 4.5 GM/DL Calcium Level 9.0 MG/DL Alkaline Phosphatase 69 U/L Aspartate Amino Transf (AST/SGOT) 21 U/L Alanine Aminotransferase (ALT/SGPT) 31 U/L Total Bilirubin 0.6 MG/DL Sodium Level 139 MEQ/L Potassium Level 3.9 MEQ/L Chloride Level 104 MEQ/L Carbon Dioxide Level 27.0 MEQ/L Anion Gap 8 MEQ/L Estimat Glomerular Filtration Rate 76 ML/MIN Lipase 95 U/L Urine Color YELLOW Urine Turbidity CLEAR Urine pH 6.0 Urine Specific [place] 1.034 Urine Protein TRACE mg/dL Urine Glucose (UA) NEG mg/dL Urine Ketones TRACE mg/dL Urine Occult Blood NEG Urine Nitrite NEG Urine Bilirubin NEG Urine Urobilinogen LESS THAN 2.0 MG/DL Urine Leukocyte Esterase NEG Urine RBC 1 /hpf Urine WBC LESS THAN 1 /hpf Urine Mucus FEW /lpf Microscopic Urinalysis Comment CULT NOT INDICATED MDM Medical Decision Making Medical Screen Exam Complete: Yes Emergency Medical Condition: Yes Differential Diagnosis Acute gastroenteritis vs. pancreatitis vs. gastritis vs. influenza Narrative Course 21yo well appearing male here with abdominal pain, vomiting and diarrhea. Labs reviewed, no leukocytosis. H/H normal. CMP unremarkable except mildly elevated BUN at 21. Lipase normal. UA showed WBC less than 1. Influenza negative. Group A strep negative. Pt given GI cocktail, zofran and NS IVF. Pt reevaluated at bedside and said pain has improved. No longer nauseous and feels better. Pt then mentions that he fell down the stairs 2 days ago but does not want any work up including CT scan for that. Pt has no signs of trauma , denied any LOC, focal weakness or numbness. Return precautions given. Diagnosis Primary Impression: Gastroenteritis Patient Instructions: General Instructions Departure Forms: Tests/Procedures Additional Instructions: Please follow up with [facility] in 2-3 days. Return to the ED if symptoms worsen. Med/Other Pt SpecificInfo: Prescription(s) given Scripts Acetaminophen (Tylenol) 325 Mg Tab 650 MG PO Q6H Y for PAIN SCALE 1 TO 4, #20 TAB 0 Refills Prov: Regla Lal 05/18/17 Disposition: 01 DISCHARGE HOME Condition: Stable Regla Lal DO May 18, 2017 19:57
[2017-05-18] MEDS ORDERED: LIDOCAINE VISCOUS 2% SOLN 15 ML UDC PO ONE (20:00)
[2017-05-18] MEDS ORDERED: ONDANSETRON HCL 4 MG/2 ML VIAL IVP ONE (20:00)
[2017-05-18] MEDS ORDERED: ALUMINUM/MAGNESIUM/SIMETH 30 ML CUP PO ONE (20:00)
[2017-05-18 21:00] LABS: BASOPHIL % 0.3 % (0.0-2.0); EOSINOPHIL % 0.4 % (0.0-4.0); HEMATOCRIT 46.3 % (39.0-51.0); HEMOGLOBIN 16.2 GM/DL (13.0-17.0); LYMPH % 4.7 % (9.0-44.0); LYMPHOCYTE # 0.4 TH/MM3 (1.0-4.8); MEAN CELL VOLUME 94.1 FL (80.0-100.0); MEAN CORPUSCULAR HEMOGLOBIN 32.9 PG (27.0-34.0); MEAN PLATELET VOLUME 9.7 FL (7.0-11.0); MONO % 3.3 % (0.0-8.0); MONOCYTE # 0.3 TH/MM3 (0-0.9); NEUT % 91.3 % (16.0-70.0); PLATELET COUNT 183 TH/MM3 (150-450); RED BLOOD COUNT 4.92 MIL/MM3 (4.50-5.90); RED CELL DISTRIBUTION WIDTH 12.9 % (11.6-17.2); WHITE BLOOD COUNT 8.8 TH/MM3 (4.0-11.0)
[2017-05-18 21:12] LABS: PROTHROMBIN TIME - PATIENT 10.6 SEC (9.8-11.6)
[2017-05-18 21:19] LABS: ALBUMIN 4.5 GM/DL (3.4-5.0); AST (GOT) 21 U/L (15-37); BLOOD UREA NITROGEN 21 MG/DL (7-18); CHLORIDE 104 MEQ/L (98-107); GLOMERULAR FILTRATION RATE 76 ML/MIN (>89); GLUCOSE,RANDOM 105 MG/DL (74-106); SODIUM (NA) 139 MEQ/L (136-145)
[2017-05-18 21:20] LABS: ALT (GPT) 31 U/L (12-78)
[2017-05-18 21:23] LABS: ALKALINE PHOSPHATASE 69 U/L (45-117); TOTAL BILIRUBIN ADULT 0.6 MG/DL (0.2-1.0); TOTAL PROTEIN 7.6 GM/DL (6.4-8.2)
[2017-05-18 22:01] LABS: BILIRUBIN, URINE NEG (NEG); BLOOD, URINE NEG (NEG); GLUCOSE,URINE NEG (NEG); KETONE, URINE TRACE mg/dL (NEG); MUCUS URINE FEW /lpf (OCC); NITRITE,URINE NEG (NEG); URINE COLOR YELLOW (YELLW/STRAW); URINE LEUKOCYTE ESTERASE NEG (NEG)
[2017-05-18] MEDS ORDERED: TYLE325T PO (22:22)
== END 2017-05-18 22:36 | disposition home or self-care (01) ==
LOC: NEPD 19:05
DX: K52.9 Noninfective gastroenteritis and colitis, unspecified (principal); F41.9 Anxiety disorder, unspecified; F17.210 Nicotine dependence, cigarettes, uncomplicated; F12.90 Cannabis use, unspecified, uncomplicated
CPT/HCPCS: 80053; 81001; 83690; 85025; 85610; 85730; 87081; 87804; 87880; 96361; 96374; 99284; J2405; J7030